=== PATIENT | female | born 2000 | race Two or more races ===

== ENCOUNTER 2021-02-04 16:28 | Emergency (ER) | payer OTHER, MEDICAID ==
[~2021-02-04 16:28] MED LIST: Iopamidol-370 76% 500 ML 1 ML ONE
[2021-02-04 17:10] LABS: #Basophils 0.1 thou/uL (0.0-0.2); #Eosinphils 0.3 thou/uL (0.0-0.7); #Lymphocytes 4.1 thou/uL (1.20-3.40); #Monocytes 0.9 thou/uL (0.11-0.59); #Neutrophils 9.2 thou/uL (1.40-6.50); %Basophils 0.8 % (0.0-1.0); %Eosinophils 2.1 % (0.0-10.0); %Lymphocytes 28.2 % (21.0-51.0); %Monocytes 6.2 % (0.0-10.0); %Neutrophils 62.9 % (42.0-75.0); Hemoglobin 14.6 g/dL (12.0-16.0); Mean Corpuscular Hemoglobin 28.3 pg (27.0-31.0); Mean Corpuscular Volume 88.4 fL (78.0-98.0); Mean Platelet Volume 6.3 fL (7.4-10.4); Platelet Count 274 thou/uL (130-400); RBC Distribution Width 11.7 % (11.5-14.5); Red Blood Cell (RBC) Count 5.18 mill/uL (4.20-5.40); White Blood Cell (WBC) Count 14.6 thou/uL (4.8-10.8)
[2021-02-04] MEDS ORDERED: Fentanyl 100 MCG/2 ML VIAL ONE (17:53)
[2021-02-04 18:14] LABS: BHCG - Serum Negative (NEGATIVE); Pregs Control Background? CLEAR/WHITE (CLR/WHITE); Pregs Control Bar Appear? YES (CONTROL BAR)
[2021-02-04 18:24] LABS: ALT (SGPT) 18 U/L (8-55); AST (SGOT) 20 U/L (5-34); Albumin 4.1 g/dL (3.5-5.0); Alkaline Phosphatase 78 U/L (40-110); Anion Gap 12 mmol/L (10-20); BUN (Urea Nitrogen) 11 mg/dL (7.0-18.7); Bilirubin, Total 0.2 mg/dL (0.2-1.2); Calc. Creatinine Clearance 0 mL/min (70-130); Calcium 9.4 mg/dL (7.8-10.44); Carbon Dioxide 28 mmol/L (22-29); Chloride 102 mmol/L (98-107); Globulin 4.2 g/dL (2.4-3.5); Glucose 92 mg/dL (70-105); Potassium 4.1 mmol/L (3.5-5.1); Protein, Total 8.3 g/dL (6.0-8.3); Sodium 138 mmol/L (136-145)
[2021-02-04] MEDS ORDERED: Boostrix 0.5 ML (Tdap) VIAL ONE (18:40)
[2021-02-04] MEDS ORDERED: Cyclobenzaprine 10 MG TAB ONE (20:31)
== END 2021-02-04 21:58 | disposition home or self-care (01) ==
LOC: ERS 16:28
DX: S06.0X9A Concussion with loss of consciousness of unspecified duration, initial encounter (principal); M79.601 Pain in right arm; V49.50XA Passenger injured in collision with unspecified motor vehicles in traffic accident, initial encounter; J45.909 Unspecified asthma, uncomplicated; D57.1 Sickle-cell disease without crisis
CPT/HCPCS: 36415; 70450; 71045; 71260; 72125; 74177; 80053; 83690; 84703; 85025; 90715; 93005; 96374; J3010; Q9967